=== PATIENT | male | born 1945 | race African-American/Black ===

== ENCOUNTER 2018-06-09 10:44 | Inpatient (IN) | payer MEDICARE, OTHER ==
[~2018-06-09] VITALS: Ht 175.3 cm; Wt 83.0 kg
[2018-06-09] MEDS ORDERED: SODIUM CHLORIDE 0.9% 1,000 ML IV ONE ×2 (10:59→13:15)
[2018-06-09 12:07] LABS: BASOPHILS % 0.2 % (0.0-2.0); EOSINOPHILS % 7.6 % (0.0-5.0); HEMATOCRIT. 27.4 % (42.0-52.0); HEMOGLOBIN. 9.2 g/dL (14.0-18.0); LYMPHOCYTES % 9.4 % (20.0-50.0); MEAN CORPUSCULAR HEMOGLOBIN 28.9 pg (28.0-32.0); MEAN CORPUSCULAR VOLUME 86.4 fL (80.0-94.0); MEAN PLATELET VOLUME 10.1 fl (7.4-10.4); MONOCYTES % 8.8 % (2.0-8.0); PLATELET 269 x1000/uL (130-400); RED BLOOD CELL COUNT 3.17 mill/uL (4.7-6.1); RED CELL DISTRIBUTION WIDTH 16.3 % (11.6-14.6)
[2018-06-09 12:16] LABS: CHLORIDE 108 mEq/L (98-107)
[2018-06-09 12:18] LABS: INR 2.3; PROTHROMBIN TIME 22.4 sec (9.1-11.1)
[2018-06-09] MEDS ORDERED: SODIUM CHLORIDE 0.9% 1,000 ML IV SCH (16:53)
[2018-06-09 16:57] LABS: CLARITY URINE CLEAR (CLEAR); COLOR URINE YELLOW (YELLOW); KETONES URINE NEGATIVE (NEGATIVE); LEUKOCYTE ESTERASE URINE NEGATIVE (NEGATIVE); NITRITE URINE NEGATIVE (NEGATIVE); OCCULT BLOOD URINE NEGATIVE (NEGATIVE); PROTEIN URINE 3+ (NEGATIVE); SPECIFIC GRAVITY URINE 1.014 (1.005-1.030); UROBILINOGEN URINE 0.2 E.U./dL (0.2-1.0)
[2018-06-09] MEDS ORDERED: ACETAMINOPHEN 325MG TABLET PO PRN (17:00)
[2018-06-09] MEDS ORDERED: LORAZEPAM 2MG/ML CPJ IV PRN (17:00)
[2018-06-09] MEDS ORDERED: ONDANSETRON HCL 4MG/2ML INJ IV PRN (17:00)
[2018-06-09] MEDS ORDERED: ACETAMINOPHEN 650MG/20.3ML UDC GT PRN (17:00)
[2018-06-09] MEDS ORDERED: HYDROMORPHONE HCL/PF 2MG/ML CPJ IV PRN (17:00)
[2018-06-09 18:37] VITALS: BP 165/86
[2018-06-09 19:50] LABS: *BARBITURATES SCREEN URINE NEGATIVE (NEGATIVE)
[2018-06-09 19:51] LABS: *AMPHETAMINES SCREEN URINE NEGATIVE (NEGATIVE); *BENZODIAZEPINES SCREEN URINE NEGATIVE (NEGATIVE); *COCAINE SCREEN URINE NEGATIVE (NEGATIVE); CANNABINOID URINE SCREEN NEGATIVE (NEGATIVE); METHADONE URINE SCREEN NEGATIVE (NEGATIVE); OPIATES URINE SCREEN NEGATIVE (NEGATIVE)
[2018-06-09 19:52] LABS: PHENCYCLIDINE URINE SCREEN NEGATIVE (NEGATIVE)
[2018-06-09 20:00] VITALS: BP 145/79
[2018-06-09] MEDS: SODIUM CHLORIDE 0.9% 1,000 ML IV SCH (20:19)
[2018-06-09] MEDS ORDERED: DIPHENHYDRAMINE 25MG CAPSULE PO PRN (22:00)
[2018-06-10 00:05] VITALS: BP 150/82
[2018-06-10 04:00] VITALS: BP 155/81
[2018-06-10 08:00] VITALS: BP 175/91
[2018-06-10 08:02] LABS: BASOPHILS % 0.4 % (0.0-2.0); HEMATOCRIT. 23.4 % (42.0-52.0); LYMPHOCYTES % 17.9 % (20.0-50.0); MEAN CORPUSCULAR HEMOGLOBIN 29.3 pg (28.0-32.0); MEAN PLATELET VOLUME 10.2 fl (7.4-10.4); MONOCYTES % 10.7 % (2.0-8.0); PLATELET 204 x1000/uL (130-400); RED BLOOD CELL COUNT 2.72 mill/uL (4.7-6.1); RED CELL DISTRIBUTION WIDTH 16.2 % (11.6-14.6)
[2018-06-10] MEDS ORDERED: DEXTROSE 50% WATER 50ML SYRINGE IV PRN ×2 (08:30→10:15)
[2018-06-10] MEDS ORDERED: ENOXAPARIN 30MG/0.3ML SYR SUBCUT SCH (09:00)
[2018-06-10 11:05] LABS: PHOSPHORUS 3.7 mg/dL (2.5-4.9)
[2018-06-10] MEDS ORDERED: HYDR-4134 PO (11:05)
[2018-06-10] MEDS ORDERED: FINA5TAB11 PO (11:05)
[2018-06-10] MEDS ORDERED: ISOS120T9 PO (11:05)
[2018-06-10] MEDS ORDERED: CHOL100046 PO (11:05)
[2018-06-10] MEDS ORDERED: METO200T48 PO (11:05)
[2018-06-10] MEDS ORDERED: ASCO500C15 PO (11:05)
[2018-06-10] MEDS ORDERED: MAGN400C PO (11:05)
[2018-06-10] MEDS ORDERED: HYDR50SY PO (11:05)
[2018-06-10] MEDS ORDERED: WARF-53 PO (11:05)
[2018-06-10] MEDS ORDERED: ESCI10TA54 PO (11:05)
[2018-06-10] MEDS ORDERED: AMLO10TA80 PO (11:05)
[2018-06-10] MEDS ORDERED: ASPI-1159 PO (11:05)
[2018-06-10] MEDS ORDERED: TAMS0.4C31 PO (11:05)
[2018-06-10] MEDS ORDERED: OMEP20TA2 PO (11:05)
[2018-06-10] MEDS ORDERED: ATOR-2 PO (11:05)
[2018-06-10] MEDS ORDERED: REPA0.5T3 PO (11:05)
[2018-06-10] MEDS ORDERED: LEVE10006 PO (11:05)
[2018-06-10] MEDS ORDERED: BLOOD SUGAR DIAGNOSTIC STRIP TEST SCH (12:40)
[2018-06-10] MEDS: BLOOD SUGAR DIAGNOSTIC STRIP TEST SCH ×3 (13:16→21:00)
[2018-06-10] MEDS ORDERED: MAGNESIUM 1 G PREMIX 100 ML IV SCH (13:30)
[2018-06-10] MEDS ORDERED: DIPHENHYDRAMINE 25MG CAPSULE PO PRN (13:30)
[2018-06-10] MEDS: HYDRALAZINE HCL 25MG TABLET PO SCH ×2 (13:38→23:07)
[2018-06-10] MEDS: LEVETIRACETAM 500MG/5ML CUP PO SCH ×2 (13:38→23:07)
[2018-06-10] MEDS: INSULIN LISPRO 100 UNITS/ML SUBCUT SCH ×3 (13:39→23:11)
[2018-06-10] MEDS ORDERED: HYDRALAZINE HCL 25MG TABLET PO SCH (14:00)
[2018-06-10] MEDS: SODIUM CHLORIDE 0.9% 1,000 ML IV SCH (15:00)
[2018-06-10 15:55] LABS: INR 1.9; PROTHROMBIN TIME 18.7 sec (9.1-11.1)
[2018-06-10 16:00] VITALS: BP 153/91
[2018-06-10 16:34] LABS: HEPATITIS B SURFACE ANTIGEN NEGATIVE
[2018-06-10 17:04] LABS: HEPATITIS A AB IGM NEGATIVE (NEGATIVE)
[2018-06-10 17:23] LABS: INR 1.8; PROTHROMBIN TIME 18.4 sec (9.1-11.1)
[2018-06-10] MEDS: METOPROLOL TARTRATE 50MG TABLET PO SCH (19:16)
[2018-06-10] MEDS: WARFARIN SODIUM 5MG TABLET PO SCH (19:17)
[2018-06-10 20:00] VITALS: BP 136/88
[2018-06-10] MEDS ORDERED: LEVETIRACETAM 500MG/5ML CUP PO SCH (21:00)
[2018-06-10] MEDS ORDERED: INSULIN GLARGINE UD 100 UNITS/ML SYR SUBCUT SCH (22:00)
[2018-06-10] MEDS: AMLODIPINE 5MG TABLET PO SCH (23:08)
[2018-06-11] VITALS: BP 168/90
[2018-06-11 04:00] VITALS: BP 140/78
[2018-06-11] MEDS: HYDRALAZINE HCL 25MG TABLET PO SCH ×2 (06:39→13:23)
[2018-06-11] MEDS: INSULIN LISPRO 100 UNITS/ML SUBCUT SCH ×3 (06:39→17:44)
[2018-06-11] MEDS: BLOOD SUGAR DIAGNOSTIC STRIP TEST SCH ×3 (06:39→17:44)
[2018-06-11 06:56] LABS: BASOPHILS % 0.3 % (0.0-2.0); EOSINOPHILS % 7.3 % (0.0-5.0); HEMOGLOBIN. 8.8 g/dL (14.0-18.0); LYMPHOCYTES % 15.7 % (20.0-50.0); MEAN CORPUSCULAR HEMOGLOBIN 29.1 pg (28.0-32.0); MEAN CORPUSCULAR VOLUME 86.5 fL (80.0-94.0); MEAN PLATELET VOLUME 9.7 fl (7.4-10.4); MONOCYTES % 10.6 % (2.0-8.0); NEUTROPHILS % 66.1 % (40.0-76.0); PLATELET 233 x1000/uL (130-400); RED BLOOD CELL COUNT 3.01 mill/uL (4.7-6.1); RED CELL DISTRIBUTION WIDTH 16.3 % (11.6-14.6)
[2018-06-11 08:00] VITALS: BP 102/78
[2018-06-11] MEDS: LEVETIRACETAM 500MG/5ML CUP PO SCH (08:47)
[2018-06-11] MEDS: AMLODIPINE 5MG TABLET PO SCH (08:54)
[2018-06-11] MEDS: METOPROLOL TARTRATE 50MG TABLET PO SCH ×2 (08:55→17:47)
[2018-06-11] MEDS: SODIUM CHLORIDE 0.9% 1,000 ML IV SCH (11:00)
[2018-06-11 12:00] VITALS: BP 169/86
[2018-06-11 16:00] VITALS: BP 154/89
[2018-06-11] MEDS ORDERED: MAGNESIUM 1 G PREMIX 100 ML IV NR (17:00)
[2018-06-11 17:24] VITALS: BP 154/89
[2018-06-11] MEDS: WARFARIN SODIUM 5MG TABLET PO SCH (17:46)
[2018-06-11] MEDS ORDERED: LEVETIRACETAM 500MG TABLET PO SCH (21:00)
== END 2018-06-11 18:53 | disposition home or self-care (01) | DRG 683 ==
LOC: ER 10:52 → EDBEDREQ 11:02 → 7WST 13:27 → EDBEDREQ 13:30 → ENRESERV 15:35 → 7WST 20:55
PROVIDERS: ADMIT Internal Medicine Nephrology; ATTEND Internal Medicine Nephrology
DX: N17.9 Acute kidney failure, unspecified (principal); D68.9 Coagulation defect, unspecified; E86.0 Dehydration; E83.42 Hypomagnesemia; R80.9 Proteinuria, unspecified; D63.8 Anemia in other chronic diseases classified elsewhere; E11.22 Type 2 diabetes mellitus with diabetic chronic kidney disease; E11.65 Type 2 diabetes mellitus with hyperglycemia; E78.00 Pure hypercholesterolemia, unspecified; E78.5 Hyperlipidemia, unspecified; B19.20 Unspecified viral hepatitis C without hepatic coma; F43.10 Post-traumatic stress disorder, unspecified; G40.909 Epilepsy, unspecified, not intractable, without status epilepticus; I12.9 Hypertensive chronic kidney disease with stage 1 through stage 4 chronic kidney disease, or unspecified chronic kidney disease; N18.9 Chronic kidney disease, unspecified; N40.0 Benign prostatic hyperplasia without lower urinary tract symptoms; Z53.20 Procedure and treatment not carried out because of patient's decision for unspecified reasons; Z79.01 Long term (current) use of anticoagulants; Z79.4 Long term (current) use of insulin; Z86.718 Personal history of other venous thrombosis and embolism; Z86.73 Personal history of transient ischemic attack (TIA), and cerebral infarction without residual deficits; Z79.82 Long term (current) use of aspirin; Z79.899 Other long term (current) drug therapy; Z79.84 Long term (current) use of oral hypoglycemic drugs
CPT/HCPCS: 36415; 71045; 76770; 80048; 80061; 80305; 82962; 83036; 83735; 84100; 84443; 84484; 85379; 86705; 86709; 86803; 87340; 93005; 93306; 93880; 93970; 96360; 96361; 97162; 97530; 99285; J1815; J3475; J7030; Q0163

== ENCOUNTER 2019-06-11 20:23 | Emergency (ER) | payer MEDICARE, OTHER ==
[~2019-06-11] VITALS: Ht 177.8 cm; Wt 109.0 kg
[~2019-06-11 20:23] MED LIST: AMLO10TA80 PO; ASCO500C15 PO; ASPI-1497 PO; ATOR-2 PO; CHOL100046 PO; ESCI10TA61 PO; FINA5TAB11 PO; HYDR-4134 PO; HYDR50SY PO; ISOS120T9 PO; LEVE10006 PO; MAGN400C PO; METO200T48 PO; OMEP20TA2 PO; REPA0.5T5 PO; TAMS0.4C31 PO; WARF-53 PO
[2019-06-11 20:40] VITALS: BP 157/89
== END 2019-06-11 23:11 | disposition left against medical advice (07) ==
LOC: ER 20:23
DX: Z53.21 Procedure and treatment not carried out due to patient leaving prior to being seen by health care provider (principal); R53.1 Weakness
CPT/HCPCS: 93005

== ENCOUNTER 2019-10-27 09:07 | Inpatient (IN) | payer MEDICARE, OTHER ==
[~2019-10-27] VITALS: Ht 175.3 cm; Wt 82.6 kg
[2019-10-27] MEDS ORDERED: VANCOMYCIN 1 G PREMIX 200 ML IV ONE (09:45)
[2019-10-27] MEDS ORDERED: PIPERACILLIN/TAZ 3.375G PREMIX 50 ML IV ONE (09:45)
[2019-10-27] MEDS ORDERED: ACETAMINOPHEN 325MG TABLET PO ONE (09:45)
[2019-10-27 10:04] LABS: HEMATOCRIT. 31.9 % (42.0-52.0); MEAN CORPUSCULAR HEMOGLOBIN 29.1 pg (28.0-32.0); MEAN CORPUSCULAR VOLUME 84.9 fL (80.0-94.0); MEAN PLATELET VOLUME 8.8 fl (7.4-10.4); PLATELET 216 x1000/uL (130-400); RED BLOOD CELL COUNT 3.76 mill/uL (4.7-6.1); RED CELL DISTRIBUTION WIDTH 17.8 % (11.6-14.6)
[2019-10-27 10:14] LABS: CHLORIDE 104 mEq/L (98-107)
[2019-10-27 10:17] LABS: PROTHROMBIN TIME 10.8 sec (9.6-11.0)
[2019-10-27 10:40] LABS: BG BASE EXCESS -1.2 mmol/L (-2.0-2.0); BG CARBOXYHEMOGLOBIN 0.3 % (0.5-1.5); BG DEOXYHEMOGLOBIN 8.2 % (0.0-5.0); BG FRACTION INSPIRED OXYGEN 21; BG HCO3 ACT 23.1 mmol/L (22.0-26.0); BG METHEMOGLOBIN 0.1 % (0.0-1.5); BG OXYGEN SATURATION 91.8 % (92.0-98.5); BG OXYHEMOGLOBIN 91.4 % (94.0-97.0); BG PCO2 37.3 mmHg (35.0-45.0); BG PO2 63.4 mmHg (75.0-100.0); BG SAMPLE SITE RIGHT RADIAL; BG TOTAL HEMOGLOBIN 10.6 g/dL (12.0-18.0); BG VENT MODE ROOM AIR
[2019-10-27 11:06] LABS: PLATELET ESTIMATE NORMAL
[2019-10-27] MEDS ORDERED: ONDANSETRON HCL 4MG/2ML INJ IV PRN (17:15)
[2019-10-27] MEDS ORDERED: DIPHENHYDRAMINE 50MG/ML VIAL IV PRN (17:15)
[2019-10-27] MEDS ORDERED: HYDROCODONE/ACETAMINOPHEN 10/325MG TABLET PO PRN (17:15)
[2019-10-27] MEDS ORDERED: DEXTROSE 50% WATER 50ML SYRINGE IV PRN (17:15)
[2019-10-27] MEDS ORDERED: DOCUSATE SODIUM 100MG CAPSULE PO PRN (17:15)
[2019-10-27] MEDS ORDERED: GUAIFENESIN 200MG/10ML SUGAR FREE UDC PO PRN (17:15)
[2019-10-27] MEDS ORDERED: IPRATROPIUM/ALBUTEROL 0.5-3(2.5)MG/3ML NEB ORI PRN (17:15)
[2019-10-27] MEDS ORDERED: HYDRALAZINE 20MG/ML VIAL IV PRN (17:15)
[2019-10-27] MEDS ORDERED: NA PHOS,M-B/NA PHOS,DI-BA ENEMA 118ML PR PRN (17:15)
[2019-10-27] MEDS ORDERED: MAGNESIUM/ALUMINUM HYDROXIDE/SIMETHICONE 30ML UDC PO PRN (17:15)
[2019-10-27] MEDS ORDERED: LORAZEPAM 2MG/ML CPJ IV PRN (17:15)
[2019-10-27 18:20] VITALS: BP 178/84
[2019-10-27] MEDS: INSULIN LISPRO 100 UNITS/ML SUBCUT SCH ×2 (18:20→21:00)
[2019-10-27 18:30] VITALS: BP 178/84
[2019-10-27] MEDS ORDERED: AZITHROMYCIN 500 MG in DEXT 5% WATER 250 ML IV SCH (18:30)
[2019-10-27] MEDS ORDERED: CEFTRIAXONE 1 G PREMIX 50 ML IV SCH (18:30)
[2019-10-27] MEDS ORDERED: ENOXAPARIN 30MG/0.3ML SYR SUBCUT SCH (18:30)
[2019-10-27] MEDS: CLONIDINE 0.1MG TABLET PO PRN (18:34)
[2019-10-27] MEDS: ACETAMINOPHEN 325MG TABLET PO PRN (19:14)
[2019-10-27 20:00] VITALS: BP 174/100
[2019-10-27] MEDS: MORPHINE SULFATE 2 MG/ML CPJ (NOT FOR IM USE) IV PRN (20:22)
[2019-10-27] MEDS: BLOOD SUGAR DIAGNOSTIC STRIP TEST SCH (21:02)
[2019-10-27] MEDS: SODIUM CHLORIDE 0.9% INJ 3ML FLUSH IVF SCH (22:00)
[2019-10-28] VITALS (8 sets, daily range): BP systolic 112–174; BP diastolic 73–90
[2019-10-28] MEDS: CLONIDINE 0.1MG TABLET PO PRN (01:04)
[2019-10-28] MEDS: ACETAMINOPHEN 325MG TABLET PO PRN (04:34)
[2019-10-28] MEDS: MORPHINE SULFATE 2 MG/ML CPJ (NOT FOR IM USE) IV PRN (04:35)
[2019-10-28] MEDS: SODIUM CHLORIDE 0.9% INJ 3ML FLUSH IVF SCH ×3 (06:09→22:12)
[2019-10-28] MEDS: BLOOD SUGAR DIAGNOSTIC STRIP TEST SCH ×3 (06:44→21:00)
[2019-10-28] MEDS: INSULIN LISPRO 100 UNITS/ML SUBCUT SCH ×3 (08:01→21:00)
[2019-10-28 14:40] LABS: HEMATOCRIT. 27.5 % (42.0-52.0); HEMOGLOBIN. 9.5 g/dL (14.0-18.0); MEAN CORPUSCULAR HEMOGLOBIN 29.2 pg (28.0-32.0); MEAN CORPUSCULAR VOLUME 84.5 fL (80.0-94.0); MEAN PLATELET VOLUME 8.8 fl (7.4-10.4); PLATELET 178 x1000/uL (130-400); RED BLOOD CELL COUNT 3.26 mill/uL (4.7-6.1); RED CELL DISTRIBUTION WIDTH 17.8 % (11.6-14.6)
[2019-10-28 14:48] LABS: CHLORIDE 108 mEq/L (98-107)
[2019-10-28 14:56] LABS: HDL CHOLESTEROL 22 mg/dL (40-59); LDL CHOLESTEROL 26 mg/dL (5-100)
[2019-10-28 14:57] LABS: CREATINE KINASE 51 IU/L (39-308); CREATINE KINASE MB FRACTION 1.5 ng/mL (0.5-3.6)
[2019-10-28 14:59] LABS: T4 FREE 0.96 ng/dL (0.76-1.46)
[2019-10-28] MEDS ORDERED: ALBUTEROL 6.7GM HFA INHALER ORI SCH (18:00)
[2019-10-28] MEDS ORDERED: CEFTRIAXONE 1 G PREMIX 50 ML IV SCH (18:00)
[2019-10-28] MEDS ORDERED: AZITHROMYCIN 500 MG in DEXT 5% WATER 250 ML IV SCH (19:00)
[2019-10-28] MEDS ORDERED: VANCOMYCIN 1 G PREMIX 200 ML IV NR (20:00)
[2019-10-28 20:58] LABS: PLATELET ESTIMATE NORMAL
== END 2019-10-28 22:48 | disposition short-term general hospital (02) | DRG 871 ==
LOC: ER 09:07 → EDBEDREQTM 10:13 → EDBEDREQ 10:13 → EDBEDREQTM 12:19 → EDBEDREQSVC 12:19 → EDBEDREQ 12:19 → ENRESERV 15:42 → 7WST 18:23
PROVIDERS: ADMIT Internal Medicine; ATTEND Internal Medicine
PROC: 5A1D70Z Performance of Urinary Filtration, Intermittent, Less than 6 Hours Per Day (ICD-10-PCS; principal; 2019-10-27)
PROC: 5A1D70Z Performance of Urinary Filtration, Intermittent, Less than 6 Hours Per Day (ICD-10-PCS; 2019-10-28)
DX: A41.89 Other specified sepsis (principal); N18.6 End stage renal disease; J96.00 Acute respiratory failure, unspecified whether with hypoxia or hypercapnia; U07.1 COVID-19; J12.89 Other viral pneumonia; B15.9 Hepatitis A without hepatic coma; I13.2 Hypertensive heart and chronic kidney disease with heart failure and with stage 5 chronic kidney disease, or end stage renal disease; I50.32 Chronic diastolic (congestive) heart failure; B19.20 Unspecified viral hepatitis C without hepatic coma; D64.9 Anemia, unspecified; N40.0 Benign prostatic hyperplasia without lower urinary tract symptoms; G40.909 Epilepsy, unspecified, not intractable, without status epilepticus; I27.20 Pulmonary hypertension, unspecified; E87.6 Hypokalemia; E11.22 Type 2 diabetes mellitus with diabetic chronic kidney disease; J20.8 Acute bronchitis due to other specified organisms; I25.10 Atherosclerotic heart disease of native coronary artery without angina pectoris; B97.89 Other viral agents as the cause of diseases classified elsewhere; Z99.2 Dependence on renal dialysis; Z88.8 Allergy status to other drugs, medicaments and biological substances; Z79.82 Long term (current) use of aspirin; Z79.01 Long term (current) use of anticoagulants; Z79.899 Other long term (current) drug therapy; Z86.73 Personal history of transient ischemic attack (TIA), and cerebral infarction without residual deficits; Z86.718 Personal history of other venous thrombosis and embolism
CPT/HCPCS: 36415; 36600; 71045; 80053; 80061; 82375; 82550; 82553; 82805; 82962; 83605; 83735; 84100; 84145; 84439; 84443; 84484; 85025; 93005; 93970; 99291; J0360; J0456; J0696; J1650; J1815; J2270; J2543; J3370; J7060; U0003-CS